=== PATIENT | female | born 2000 | race Caucasian/White ===

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

== ENCOUNTER → 2024-04-22 | Outpatient (CLI) | payer OTHER ==
[~2024-04-22] MED LIST changes: +ERYT1OIN RIGHTEYE
[2024-04-22 13:03] LABS: BASOPHILS ABSOLUTE AUTO 0.06 K/mm3 (0.00-0.23); BASOPHILS PERCENT AUTO 1 % (0-2); EOSINOPHILS ABSOLUTE AUTO 0.14 K/mm3 (0.00-0.68); EOSINOPHILS PERCENT AUTO 2 % (0-6); Hematocrit 40.7 % (33.0-51.0); Hemoglobin 14.2 g/dL (11.5-16.0); IMMATURE GRAN ABSOLUTE AUTO 0.01 K/mm3 (0.00-0.10); IMMATURE GRAN PERCENT AUTO 0 % (0-1); LYMPHOCYTES ABSOLUTE AUTO 2.24 K/mm3 (0.84-5.20); LYMPHOCYTES PERCENT AUTO 34 % (21-46); MONOCYTES ABSOLUTE AUTO 0.43 K/mm3 (0.16-1.47); MONOCYTES PERCENT AUTO 6 % (4-13); Mean Corpuscular HGB 30.5 pg (26.0-34.0); Mean Corpuscular HGB Conc 34.9 g/dL (31.5-36.5); Mean Corpuscular Volume 87 fL (80-100); Mean Platelet Volume 10.3 fL (9.1-12.4); NEUTROPHILS ABSOLUTE AUTO 3.79 K/mm3 (1.96-9.15); NEUTROPHILS PERCENT AUTO 57 % (41-73); Platelet Count 244 K/mm3 (150-400); RDW Coefficient Variation 12.6 % (11.7-14.2); RDW Standard Deviation 40.2 fL (35.1-46.3); Red Blood Cell Count 4.66 M/mm3 (3.80-5.20); White Blood Cell Count 6.67 K/mm3 (4.00-11.30)
[2024-04-22 16:57] LABS: Alanine Aminotransfer (ALT/SGP 19 U/L (12-78); Albumin, Blood 4.1 g/dL (3.4-5.0); Albumin/Globulin Ratio 1.4 (0.8-1.8); Alk Phos 52 U/L (50-136); Anion Gap 11 mmol/L (3-11); Aspartate Aminotrans (AST/SGOT 13 U/L (12-37); Bilirubin, Total 0.3 mg/dL (0.1-1.0); Blood Urea Nitrogen 14 mg/dL (8-24); Bun/Creatinine Ratio 21.5 (12.0-20.0); CHOL/HDL RATIO 4.8; CO2, Blood 22 mmol/L (21-32); Calcium, Blood 8.9 mg/dL (8.5-10.1); Chloride, Blood 109 mmol/L (98-108); Cholesterol 195 mg/dL (50-200); Creatinine, Blood 0.65 mg/dL (0.40-1.00); Globulin, Blood 2.9 g/dL (2.2-4.0); Glomerular Filtration Rate 125 (60-); Glucose, Blood 99 mg/dL (70-99); HDL Cholesterol 41 mg/dL (>39); LDL/HDL RATIO 3.3; Low Density Lipoprotein Chol 136 mg/dL (0-110); Potassium, Blood 4.1 mmol/L (3.5-5.5); Sodium, Blood 138 mmol/L (136-145); Triglycerides 88 mg/dL (30-140); Very Low Density Lipoprot Chol 17 mg/dL (6-28)
== END | disposition home or self-care (01) ==
LOC: LAB SHORT 09:00 → LAB 09:00
PROVIDERS: Physician Assistant
DX: Z51.81 Encounter for therapeutic drug level monitoring (principal); Z79.899 Other long term (current) drug therapy
CPT/HCPCS: 80053; 80061; 82306; 83036; 84443; 85025

== ENCOUNTER 2024-06-30 18:57 | Emergency (ER) | payer OTHER ==
[~2024-06-30] VITALS: Ht 160 cm; Wt 83.9 kg
[2024-06-30] MEDS ORDERED: TOPI25C PO (19:23)
[2024-06-30 19:52] LABS: Source, Urine Clean Catch
[2024-06-30 19:57] LABS: Appearance, Urine Clear (Clear); Bilirubin, Urine Neg (Neg); Blood, Urine Neg (Neg); Glucose Qualitative, Urine Neg (Neg); Ketones, Urine Neg (Neg); Leukocyte Esterase, Urine Neg (Neg); Nitrite, Urine Neg (Neg); Protein, Urine Neg (Neg); Specific Gravity, Urine 1.015 (1.003-1.022); Urobilinogen, Urine NORM (Normal)
[2024-06-30 20:01] LABS: Albumin, Blood 4.3 g/dL (3.4-5.0); Albumin/Globulin Ratio 1.2 (0.8-1.8); Bilirubin, Total 0.3 mg/dL (0.1-1.0); Bun/Creatinine Ratio 17.7 (12.0-20.0); Calcium, Blood 9.2 mg/dL (8.5-10.1); Creatinine, Blood 0.74 mg/dL (0.40-1.00); Globulin, Blood 3.5 g/dL (2.2-4.0); Potassium, Blood 3.6 mmol/L (3.5-5.5); Total Protein, Blood 7.8 g/dL (6.4-8.2)
[2024-06-30 20:03] LABS: Color, Urine Pale Yellow (P-Yellow)
[2024-06-30] MEDS ORDERED: Morphine Sulfate 4 MG/1 ML Injection IV ONE (20:20)
[2024-06-30] MEDS ORDERED: Ondansetron HCl 2 MG / ML 2ML Vial IV ONE (20:20)
[2024-06-30 21:04] LABS: BASOPHILS ABSOLUTE AUTO 0.04 K/mm3 (0.00-0.23); BASOPHILS PERCENT AUTO 1 % (0-2); EOSINOPHILS PERCENT AUTO 1 % (0-6); Hemoglobin 13.2 g/dL (11.5-16.0); IMMATURE GRAN ABSOLUTE AUTO 0.03 K/mm3 (0.00-0.10); IMMATURE GRAN PERCENT AUTO 0 % (0-1); LYMPHOCYTES ABSOLUTE AUTO 1.36 K/mm3 (0.84-5.20); LYMPHOCYTES PERCENT AUTO 16 % (21-46); MONOCYTES ABSOLUTE AUTO 0.63 K/mm3 (0.16-1.47); MONOCYTES PERCENT AUTO 8 % (4-13); Mean Corpuscular HGB 30.7 pg (26.0-34.0); Mean Corpuscular HGB Conc 34.7 g/dL (31.5-36.5); Mean Corpuscular Volume 88 fL (80-100); Mean Platelet Volume 9.7 fL (9.1-12.4); NEUTROPHILS ABSOLUTE AUTO 6.25 K/mm3 (1.96-9.15); NEUTROPHILS PERCENT AUTO 74 % (41-73); Platelet Count 231 K/mm3 (150-400); RDW Coefficient Variation 13.5 % (11.7-14.2); White Blood Cell Count 8.41 K/mm3 (4.00-11.30)
[2024-06-30] MEDS ORDERED: Ketorolac Tromethamine 15mg Vial IV ONE (21:25)
[2024-06-30 22:30] VITALS: BP 115/68
[2024-06-30] MEDS ORDERED: RX Prepack 6 Tabs Oxycodone 5mg UD ONE (22:35)
== END 2024-06-30 23:00 | disposition home or self-care (01) ==
LOC: ER 18:57
PROVIDERS: Physician Assistant
DX: R07.89 Other chest pain (principal); Z79.899 Other long term (current) drug therapy
CPT/HCPCS: 71046; 71260; 80053; 81003; 81025; 85025; 96374-59; 96375-59; 99284-25; A9270; J1885; J2270; J2405; Q9967

== ENCOUNTER 2024-07-03 04:14 | Emergency (ER) | payer OTHER ==
[~2024-07-03] VITALS: Ht 167.6 cm; Wt 81.7 kg
[~2024-07-03 04:14] MED LIST changes: +TOPI25C PO
[2024-07-03] MEDS ORDERED: Ketorolac Tromethamine 30mg Vial IV ONE (04:35)
[2024-07-03] MEDS ORDERED: NS 1,000 ML IV SCH (04:35)
[2024-07-03 04:43] LABS: BASOPHILS ABSOLUTE AUTO 0.06 K/mm3 (0.00-0.23); BASOPHILS PERCENT AUTO 1 % (0-2); EOSINOPHILS PERCENT AUTO 1 % (0-6); Hemoglobin 13.7 g/dL (11.5-16.0); IMMATURE GRAN ABSOLUTE AUTO 0.06 K/mm3 (0.00-0.10); IMMATURE GRAN PERCENT AUTO 1 % (0-1); LYMPHOCYTES ABSOLUTE AUTO 2.22 K/mm3 (0.84-5.20); LYMPHOCYTES PERCENT AUTO 19 % (21-46); MONOCYTES ABSOLUTE AUTO 0.89 K/mm3 (0.16-1.47); MONOCYTES PERCENT AUTO 7 % (4-13); Mean Corpuscular HGB 30.6 pg (26.0-34.0); Mean Corpuscular HGB Conc 34.3 g/dL (31.5-36.5); Mean Corpuscular Volume 90 fL (80-100); Mean Platelet Volume 9.4 fL (9.1-12.4); NEUTROPHILS ABSOLUTE AUTO 8.67 K/mm3 (1.96-9.15); NEUTROPHILS PERCENT AUTO 72 % (41-73); Platelet Count 272 K/mm3 (150-400); RDW Coefficient Variation 13.7 % (11.7-14.2); RDW Standard Deviation 44.6 fL (35.1-46.3); Red Blood Cell Count 4.47 M/mm3 (3.80-5.20)
[2024-07-03] MEDS ORDERED: Morphine Sulfate 4 MG/1 ML Injection IV ONE (05:00)
[2024-07-03 05:33] LABS: Albumin, Blood 3.9 g/dL (3.4-5.0); Albumin/Globulin Ratio 1.1 (0.8-1.8); Bilirubin, Total 0.4 mg/dL (0.1-1.0); Bun/Creatinine Ratio 19.7 (12.0-20.0); Calcium, Blood 9.2 mg/dL (8.5-10.1); Creatinine, Blood 0.81 mg/dL (0.40-1.00); Globulin, Blood 3.5 g/dL (2.2-4.0); Potassium, Blood 4.1 mmol/L (3.5-5.5); Total Protein, Blood 7.4 g/dL (6.4-8.2)
[2024-07-03 06:21] LABS: Source, Urine Clean Catch
[2024-07-03 06:28] LABS: Bilirubin, Urine Neg (Neg); Blood, Urine Neg (Neg); Glucose Qualitative, Urine Neg (Neg); Ketones, Urine Neg (Neg); Leukocyte Esterase, Urine Neg (Neg); Nitrite, Urine Neg (Neg); Protein, Urine Neg (Neg); Urobilinogen, Urine NORM (Normal)
[2024-07-03 06:45] LABS: Appearance, Urine Clear (Clear); Color, Urine Yellow (P-Yellow)
[2024-07-03 07:04] LABS: Influenza A, PCR NEGATIVE (NEGATIVE); Influenza B, PCR NEGATIVE (NEGATIVE); Resp Syncytial Virus, PCR NEGATIVE (NEGATIVE); SARS-Cov-2 (COVID-19) PCR, MMC NEGATIVE (NEGATIVE)
[2024-07-03] MEDS ORDERED: HYDROcodone 7.5-APAP 325 TAB PO ONE (07:40)
[2024-07-03 07:46] VITALS: BP 115/64
[2024-07-03] MEDS ORDERED: Percocet 5-3251 EACH PO (08:00)
== END 2024-07-03 08:28 | disposition home or self-care (01) ==
LOC: ER 04:14
PROVIDERS: Emergency Medicine
DX: N83.202 Unspecified ovarian cyst, left side (principal); Z79.899 Other long term (current) drug therapy
CPT/HCPCS: 0241U; 74177; 80053; 81003; 81025; 83605; 83690; 85025; 96361; 96374-59; 96375; 99284-25; A9270; J1885; J2270; J7030; Q9967

== ENCOUNTER 2025-06-26 07:26 | Day surgery (SDC) | payer OTHER ==
[~2025-06-26] VITALS: Ht 154.9 cm; Wt 98.0 kg
[2025-06-26] VITALS (10 sets, daily range): BP systolic 114–127; BP diastolic 67–79
[~2025-06-26 07:26] MED LIST changes: +BUPR150ER PO; +Percocet 5-3251 EACH PO
[2025-06-26] MEDS ORDERED: CeFAZolin Sodium 2,000 MG in NS 100 ML IV SCH (07:35)
--- NOTE | 2025-06-26 08:44 | NUR ---
History, Chart, Medications and Allergies reviewed before start of procedure. Patient up to Ambulate independently. Gait steady. Pre-Op teaching done. Pt verbalizes understanding. Patient confirms NPO status and agrees with scheduled surgery. Patient reports completing Chlorhexadine shower X2 prior to admission to hospital. Surgical site prepped with 2% Chlorhexidine cloth wipe. Patient States Post-Procedure ride home has been arranged.
[2025-06-26] MEDS ORDERED: FentaNYL Citrate 50 MCG/ML 2 ML Injection ONE (09:09)
[2025-06-26] MEDS ORDERED: Midazolam HCl 1MG / ML 2ML Vial ONE (09:09)
[2025-06-26] MEDS ORDERED: Bupivacaine 0.5% W/EPI 1:200000 SDV 30 ML Vial ONE (09:28)
[2025-06-26] MEDS ORDERED: Rocuronium Bromide 10 MG/ML 5ML Injection IV ONE (09:49)
[2025-06-26] MEDS ORDERED: Dexamethasone Sod Phos 10 MG/ML 1ML VIAL ONE (10:11)
[2025-06-26] MEDS ORDERED: Ondansetron HCl 2 MG / ML 2ML Vial ONE (10:11)
[2025-06-26] MEDS ORDERED: FentaNYL Citrate 50 MCG/ML 2 ML Injection IV PRN ×2 (10:40)
[2025-06-26] MEDS ORDERED: HYDROmorphone HCl/Pf 1MG SYR IV PRN ×2 (10:40)
[2025-06-26] MEDS ORDERED: Ondansetron HCl 2 MG / ML 2ML Vial IV PRN (10:40)
[2025-06-26] MEDS ORDERED: Sugammadex Sodium 200 MG/2ML SDV (100 MG/ML) ONE (11:21)
[2025-06-26] MEDS ORDERED: HYDROmorphone HCl/Pf 1MG SYR ONE ×2 (11:21→12:01)
[2025-06-26] MEDS ORDERED: Ketorolac Tromethamine 30mg Vial ONE (11:22)
[2025-06-26] MEDS ORDERED: OxyCODONE 5 mg/Acetamin 325 mg TABLET PO PRN (12:00)
--- NOTE | 2025-06-26 13:11 | NUR ---
PT PAINFUL MEDICATED TWICE WITH PERCOCET 5/325 TIMES 2 DOING WELL AT DISCHARGE, NO N/V Patient States Post-Procedure ride home has been arranged. Discharged via wheelchair to private car for ride home. Discharge instructions reviewed with patient. Patient verbalizes understanding. Copy given to patient to take home.
== END 2025-06-26 23:00 | disposition home or self-care (01) ==
LOC: ORSCMMR 07:26 → ORD 09:45 → ORSCMMR 10:15
PROVIDERS: Obstetrics & Gynecology
PROC: 0U5F4ZZ Destruction of Cul-de-sac, Percutaneous Endoscopic Approach (ICD-10-PCS; principal; 2025-06-26 10:15)
PROC: 0UPD7HZ Removal of Contraceptive Device from Uterus and Cervix, Via Natural or Artificial Opening (ICD-10-PCS; principal; 2025-06-26 10:15)
DX: N80.353 Endometriosis of bilateral pelvic sidewall, unspecified depth (principal); N94.10 Unspecified dyspareunia; Z30.432 Encounter for removal of intrauterine contraceptive device; E66.01 Morbid (severe) obesity due to excess calories; Z68.41 Body mass index [BMI] 40.0-44.9, adult; F41.9 Anxiety disorder, unspecified; F32.A Depression, unspecified; Z79.899 Other long term (current) drug therapy
CPT/HCPCS: A9270; J0690; J1100; J1171; J1885; J2250; J2405; J2704; J3010; J7120